=== PATIENT | male | born 1980 | race Caucasian/White ===

== ENCOUNTER 2024-02-08 09:10 | Outpatient (CLI) | payer OTHER, SELFPAY ==
--- NOTE | 2024-02-08 09:30 | CRLHL7_ITS ---
For Patients: As a result of the Century Cures Act, medical imaging exams and procedure reports are released immediately into your electronic medical record. You may view this report before your referring provider. If you have questions, please contact your health care provider. INDICATION: Weakness. Low back pain. TECHNIQUE: Sagittal and axial T1, sagittal axial T2 and sagittal STIR images were obtained. FINDINGS: No comparison images. Multilevel lumbar spondylosis. Changes consistent with early recent decompressive laminectomy at the L4-5 level. The distal spinal cord and conus medullaris appear normal the conus terminates normally at the L1-2 interspace. There is no disc herniation or stenosis at the T11-12, T12-L1 or L1-2 levels. At L2-3 there is degenerative disc desiccation. There is circumferential annular bulge with anterior marginal spurring there is a shallow left paracentral disc protrusion causing mild thecal sac deformity and slight displacement of the traversing left L3 nerve root. Prominence of dorsal epidural fat with a relatively small thecal sac and neural foramen are adequately patent. At L3-4 degenerative disc desiccation. Minor circumferential annular bulge prominence of dorsal epidural fat and small thecal sac. The neural foramen are adequately patent. At L4-5 the and there is degenerative disc desiccation there findings consistent with a right hemilaminectomy and discectomy. Associated edema like signal change within the laminectomy and right dorsal epidural space with associated mild deformity of the right posterior lateral margin of the thecal sac. There is circumferential bulging of the disc anulus that extends into the inferior portions of the nerve root canals bilaterally and more prominent right than left the residual right foraminal disc protrusion contacts the exiting right L4 nerve root. There is bilateral facet enlargement with small facet joint effusions and some bone edema within the bilateral facet joints. At L5-S1 degenerative disc space narrowing and disc desiccation. Broad-based central disc osteophyte complex contacts and slightly displaces the traversing bilateral S1 nerve roots the there is mild bilateral facet arthropathy there is a trace of fluid-like signal within the dorsal epidural space but tracks inferiorly from the laminectomy site and likely represents some postoperative blood. IMPRESSION: 1. Multilevel lumbar spondylosis as outlined in detail above. 2. Consistent with recent right L4-5 hemilaminectomy and discectomy. Associated signal changes within the dorsal epidural space from L4 to S1 consistent with postoperative edema and blood. Mild narrowing of the adjacent thecal sac. 3. Edema like signal changes within the L4-5 articular facets and minimal fluid within the facet joints. Infectious inflammatory facet arthritis versus pre-existing degenerative facet arthritis are considered. 4. If there are clinical symptoms of infection, additional gadolinium enhanced MRI images may be helpful in further characterization. Dictated by Konstantin Sousa MD @ 02/09/2024 5:28:03 AM (Electronically Signed)
== END 2024-02-08 09:11 | disposition home or self-care (01) ==
PROVIDERS: PCP Physician Assistant
DX: R53.1 Weakness (principal); M47.896 Other spondylosis, lumbar region; M54.16 Radiculopathy, lumbar region
CPT/HCPCS: 72148